=== PATIENT | male | born 1970 | race Caucasian/White ===

== ENCOUNTER 2020-04-21 23:47 | Emergency (ER) | payer OTHER ==
[~2020-04-21] VITALS: Ht 182.9 cm; Wt 95.3 kg
[2020-04-21 23:50] VITALS: Ht 182.9 cm; Wt 95.3 kg
[2020-04-22 00:09] VITALS: BP 157/91
== END 2020-04-22 00:09 | disposition other institution (70) ==
LOC: ED 23:47
DX: Z02.89 Encounter for other administrative examinations (principal)